=== PATIENT | female | born 1935 | race Caucasian/White ===

== ENCOUNTER 2016-11-01 06:52 | Inpatient (IN) | payer MEDICARE, BC ==
[~2016-11-01] VITALS: Ht 160 cm; Wt 69.0 kg
[~2016-11-01 06:52] MED LIST: ALLEGRA ALLERG180 M1 PO; CELEBREX200 M1 PO; CELEBREX200 MG; DARVOCET-N 1001 TAB; ENALAPRIL-HCTZ1 EACH PO; ESTRACE1 M3 PO; FEXOFENADINE H180 MG; FOSAMAX70 MG; MINOCYCLINE HC100 M1 PO; NASACORT AQ16.5 GM; OGEN0.75 MG; OMEGA DHA92 MG PO; OMEPRAZOLE20 M3 PO; PRESERVISION A1 EAC5 PO; PRILOSEC20 MG; PROVERA2.5 MG; TYLENOL EXTRA500 M1 PO; VASERETIC 10-251 TAB; VIACTIV SOFT C1 EAC1 PO; VITAMIN D-32000 UNI4 PO; ZOCOR40 M1 PO; ZOCOR40 MG
[2016-11-02 05:41] LABS: EOS % 0.1 % (0-7); HCT-HEMATOCRIT 35.6 % (34.0-49.0); HGB-HEMOGLOBIN 12.6 gm/dl (12.0-15.5); IMMATURE GRANULOCYTES ABSOLUTE 0.04 tho/cmm (0-0.03); IMMATURE GRANULOCYTES PERCENT 0.3 % (0-0.3); LYMPH ABSOLUTE COUNT 1.1 tho/cmm (0.8-4.5); MCH (MEAN CORPUSCULAR HGB) 30.8 pg (28.0-32.0); MCHC MEAN CORPUSCULAR HGB CONC 35.4 % (32.0-36.0); MEAN PLATELET VOLUME 9.3 cmc (9.4-12.4); MONO % 10.1 % (0-12); MONOCYTE ABSOLUTE COUNT 1.4 tho/cmm (0.0-1.2); NEUTROPHIL ABSOLUTE COUNT 10.9 tho/cmm (1.6-8.0); NEUTROPHIL-AUTOMATED 10.9 tho/cmm (1.6-8.0); NEUTROPHILS % 81.5 % (40-80); PLATELET COUNT 282 tho/cmm (150-450); RED BLOOD COUNT 4.09 mil/cmm (4.00-5.20); RED CELL DISTRIBUTION WIDTH 13.4 % (12.4-16.4); WHITE BLOOD COUNT 13.3 tho/cmm (4.0-10.0)
[2016-11-02 05:51] LABS: ANION GAP 12 mmol/L (0-20); BLOOD UREA NITROGEN 13 mg/dl (6-24); CALCIUM 7.9 mg/dl (8.5-10.5); CARBON DIOXIDE-VENOUS 25 mmol/L (22-32); CHLORIDE 95 mmol/l (96-110); CREATININE 0.76 mg/dl (0.50-1.10); GLUCOSE 103 mg/dL (70-110); SODIUM 128 mmol/L (135-145); eGFR VALUE FOR BLACK 85 mL/Min
[2016-11-02 05:54] LABS: POTASSIUM 4.1 mmol/L (3.7-5.1)
[2016-11-03 06:19] LABS: ANION GAP 9 mmol/L (0-20); BLOOD UREA NITROGEN 11 mg/dl (6-24); CALCIUM 7.7 mg/dl (8.5-10.5); CARBON DIOXIDE-VENOUS 28 mmol/L (22-32); CHLORIDE 93 mmol/l (96-110); CREATININE 0.64 mg/dl (0.50-1.10); GLUCOSE 83 mg/dL (70-110); SODIUM 127 mmol/L (135-145); eGFR VALUE FOR BLACK >90 mL/Min
[2016-11-03 06:30] LABS: POTASSIUM 3.2 mmol/L (3.7-5.1)
[2016-11-03] MEDS ORDERED: TYLENOL325 M2 PO (09:59)
[2016-11-03] MEDS ORDERED: MOBIC7.5 M2 PO (09:59)
[2016-11-03] MEDS ORDERED: OXYCODONE HCL5 M1 PO (10:00)
[2016-11-03] MEDS ORDERED: ULTRAM50 M1 PO (10:01)
[2016-11-03] MEDS ORDERED: ASPIRIN81 M1 PO (10:03)
[2016-11-03] MEDS ORDERED: ZOFRAN4 M2 PO (10:04)
[2016-11-03] MEDS ORDERED: MIRALAX17 G2 PO (10:05)
== END 2016-11-04 10:15 | DRG 470 ==
LOC: 5EA 06:52 → SHSC 06:52 → CARE 07:00 → ORE 09:17 → PACU 11:09 → 5EA 12:04
PROVIDERS: Family Medicine; ADMIT Orthopaedic Surgery Foot and Ankle Surgery
PROC: 0SRD0J9 Replacement of Left Knee Joint with Synthetic Substitute, Cemented, Open Approach (ICD-10-PCS; principal; 2016-11-01)
DX: M17.12 Unilateral primary osteoarthritis, left knee (principal); M06.9 Rheumatoid arthritis, unspecified; E87.1 Hypo-osmolality and hyponatremia; I10 Essential (primary) hypertension; K21.9 Gastro-esophageal reflux disease without esophagitis; Z88.1 Allergy status to other antibiotic agents; E78.5 Hyperlipidemia, unspecified; M85.80 Other specified disorders of bone density and structure, unspecified site; G89.29 Other chronic pain; M54.9 Dorsalgia, unspecified; K44.9 Diaphragmatic hernia without obstruction or gangrene; E87.6 Hypokalemia
CPT/HCPCS: C1713; C1776; J0171; J0690; J1885; J2270; J2405; J2795; J7030